=== PATIENT | male | born 1975 | race Caucasian/White ===

== ENCOUNTER 2016-09-28 13:19 | Emergency (ER) | payer SELFPAY ==
[2016-09-28 14:55] LABS: ABSOLUTE EOSINOPHILS # (AUTO) 0.1 10^3/uL (0.0-0.6); ABSOLUTE MONOCYTES (AUTO) 0.5 10^3/uL (0.1-1.4); ABSOLUTE NEUT (AUTO) 4.9 10^3/uL (1.7-8.2); BASOPHILS % (AUTO) 0.6 % (0-2); EOSINOPHILS % (AUTO) 1.6 % (0-6); HEMATOCRIT 48.2 % (37.9-51.0); HEMOGLOBIN 16.4 g/dL (13.5-17.0); LYMPHOCYTES % (AUTO) 26.4 % (13-45); MEAN CORPUSCULAR HEMOGLOBIN 32.4 pg (27.0-33.4); MEAN CORPUSCULAR VOLUME 96 fl (80-97); MONOCYTES % (AUTO) 6.9 % (3-13); RED BLOOD COUNT 5.04 10^6/uL (4.35-5.55); RED CELL DISTRIBUTION WIDTH 12.9 % (11.5-14.0); SEGMENTED NEUTROPHILS % (AUTO) 64.5 % (42-78); WHITE BLOOD COUNT 7.6 10^3/uL (4.0-10.5)
[2016-09-28 14:58] LABS: ALANINE AMINOTRANSFERASE 62 U/L (21-72); ALBUMIN 4.1 g/dL (3.5-5.0); ALKALINE PHOSPHATASE 99 U/L (38-126); ANION GAP 12 (5-19); ASPARTATE AMINO TRANSFERASE 40 U/L (17-59); BILIRUBIN,DIRECT 0.4 mg/dL (0.0-0.4); BILIRUBIN,TOTAL 1.2 mg/dL (0.2-1.3); BLOOD UREA NITROGEN 12 mg/dL (7-20); CALCIUM 9.1 mg/dL (8.4-10.2); CARBON DIOXIDE 25 mmol/L (22-30); CHLORIDE 103 mmol/L (98-107); CREATININE RESULT 0.88 mg/dL (0.52-1.25); GLUCOSE 126 mg/dL (75-110); POTASSIUM 3.8 mmol/L (3.6-5.0); SODIUM 139.9 mmol/L (137-145); TOTAL PROTEIN 7.7 g/dL (6.3-8.2)
[2016-09-28] MEDS ORDERED: ONDANSETRON HCL INJ/PF 4 MG/2 ML SDV IV ONE (15:32)
[2016-09-28] MEDS ORDERED: DIPHENHYDRAMINE HCL 50 MG/ML VIAL IV ONE (15:32)
[2016-09-28] MEDS ORDERED: PROCHLORPERAZINE EDISYLATE INJ 10 MG/2 ML VIAL IV ONE (15:32)
[2016-09-28] MEDS ORDERED: NORMAL SALINE 1000 ML 1,000 ML IV ONE (16:24)
[2016-09-28] MEDS ORDERED: KETOROLAC TROMETHAMINE INJ/PF 30 MG/1 ML SDV IV ONE (16:27)
--- NOTE | 2016-09-28 16:37 | ER Document Report ---
ED Headache - General Mode of Arrival: Ambulatory Information source: Patient TRAVEL OUTSIDE OF THE [place] IN LAST 30 DAYS: No - HPI Similar symptoms previously: No Recently seen / treated by doctor: No <EULALIO COLEMAN - Last Filed: 09/28/16 16:56> <BLANCHEMIGUEL ANN - Last Filed: 09/29/16 01:04> - General Chief Complaint: Headache <24 hrs old Stated Complaint: HEADACHE Time Seen by Provider: 09/28/16 14:29 Notes: Patient is a 40 year old male presenting to the emergency department for headache and neck pain. Patient states that he woke up with the headache this morning. Patient's pain is radiating behind his eyes to the top of his head and down into his neck. Patient denies any history of headaches or any recent medication changes. Patient has a history of hypertension but only takes his medication when he feels like he needs it and he hasn't taken any for 2 months. Patient spent most of the day yesterday working outside in the heat on his camper. Patient has photophobia and also states he had some vomiting, sweats, and lightheadedness earlier today. (EULALIO COLEMAN) - Related Data Allergies/Adverse Reactions: No Known Allergies Allergy (Verified 09/28/16 13:27) Past Medical History - General Information source: Patient - Social History Smoking Status: Current Every Day Smoker Chew tobacco use (# tins/day): No Frequency of alcohol use: None Drug Abuse: Marijuana Family History: None - Past Medical History Cardiac Medical History: Reports: Hx Hypertension Renal/ Medical History: Reports: Hx Kidney Stones Past Surgical History: Reports: Hx Orthopedic Surgery - Immunizations Immunizations up to date: Yes Hx Diphtheria, Pertussis, Tetanus Vaccination: No <EULALIO COLEMAN - Last Filed: 09/28/16 16:56> Review of Systems - Review of Systems Constitutional: No symptoms reported EENT: No symptoms reported Cardiovascular: No symptoms reported Respiratory: No symptoms reported Gastrointestinal: See HPI Genitourinary: No symptoms reported Male Genitourinary: No symptoms reported Musculoskeletal: See HPI Skin: No symptoms reported Hematologic/Lymphatic: No symptoms reported Neurological/Psychological: See HPI, Headaches -: Yes All other systems reviewed and negative <EULALIO COLEMAN - Last Filed: 09/28/16 16:56> Physical Exam - Vital signs Interpretation: Normal, Hypertensive - General General appearance: Appears well, Alert In distress: Mild - HEENT Head: Normocephalic, Atraumatic Eyes: Normal Pupils: PERRL Mucous membranes: Dry - Respiratory Respiratory status: No respiratory distress Chest status: Nontender Breath sounds: Normal Chest palpation: Normal - Cardiovascular Rhythm: Regular Heart sounds: Normal auscultation Murmur: No - Abdominal Inspection: Obese Distension: No distension Bowel sounds: Normal Tenderness: Nontender Organomegaly: No organomegaly - Back Back: Normal, Nontender - Extremities General upper extremity: Normal inspection, Normal ROM, Normal strength General lower extremity: Normal inspection, Normal ROM, Normal strength - Neurological Neuro grossly intact: Yes Cognition: Normal Orientation: AAOx4 [place] Coma Scale Eye Opening: Spontaneous Jake Coma Scale Verbal: Oriented [place] Coma Scale Motor: Obeys Commands [place] Coma Scale Total: 15 Speech: Normal - Psychological Associated symptoms: Normal affect, Normal mood - Skin Skin Temperature: Warm Skin Moisture: Dry <EULALIO COLEMAN - Last Filed: 09/28/16 16:56> <MIGUEL MANCIA - Last Filed: 09/29/16 01:04> - Vital signs Vitals: Temp Pulse Resp BP Pulse Ox 98 F 56 L 16 168/100 H 97 09/28/16 13:30 09/28/16 13:30 09/28/16 13:30 09/28/16 13:30 09/28/16 13:30 Course - Laboratory Result Diagrams: 09/28/16 13:30 09/28/16 13:30 <EULALIO COLEMAN - Last Filed: 09/28/16 16:56> - Laboratory Result Diagrams: 09/28/16 13:30 09/28/16 13:30 <MIGUEL MANCIA - Last Filed: 09/29/16 01:04> - Re-evaluation Re-evalutation: 09/28/16 17:36 Patient is a 40-year-old male who comes in complaining of a headache. Patient also has some posterior neck pain. Patient was given Zofran, Benadryl, Compazine. He is feeling much better. Patient was able to urinate. He is taking p.o. He no longer has a headache. He will be discharged home is to follow-up with his doctor. Stable for discharge. 09/29/16 01:04 I personally performed the services described in the documentation, reviewed and edited the documentation which was dictated to the scribe in my presence, and it accurately records my words and actions. (MIGUEL MANCIA) - Vital Signs Vital signs: Temp Pulse Resp BP Pulse Ox 98 F 56 L 22 H 152/106 H 98 09/28/16 13:30 09/28/16 13:30 09/28/16 16:01 09/28/16 17:43 09/28/16 17:43 - Laboratory Laboratory results interpreted by me: 09/28/16 13:30 Glucose 126 H Discharge <EULALIO COLEMAN - Last Filed: 09/28/16 16:56> <MIGUEL MANCIA - Last Filed: 09/29/16 01:04> - Discharge Clinical Impression: Trapezius muscle spasm Headache Qualifiers: Headache type: tension-type Headache chronicity pattern: acute headache Intractability: not intractable Qualified Code(s): G44.209 - Tension-type headache, unspecified, not intractable Heat stress Qualifiers: Encounter type: initial encounter Qualified Code(s): T67.8XXA - Other effects of heat and light, initial encounter Condition: Stable Disposition: HOME, SELF-CARE Instructions: Headache ([facility]), Muscle Strain ([facility]) Additional Instructions: Please take Zofran if you needed for headache when you get home. Please drink non-caffeinated beverages to stay hydrated. Please be careful when you are out in hot weather. Prescriptions: Cyclobenzaprine HCl [Flexeril 10 Mg Tablet] 10 mg PO TID #20 tablet Forms: Return to Work Scribe Documentation - Scribe Written by Laurence:: Laurence Spear 09/28/16 17:20 acting as scribe for :: Blanche <EULALIO COLEMAN - Last Filed: 09/28/16 16:56>
[2016-09-28] MEDS ORDERED: ONDANSETRON ODT 4 MG TAB (6 TAB/DSPK) PO PRN (17:31)
[2016-09-28 17:51] VITALS: BP 152/106
== END 2016-09-28 17:40 | disposition home or self-care (01) ==
LOC: ER 13:19
DX: T67.8XXA Other effects of heat and light, initial encounter (principal); X30.XXXA Exposure to excessive natural heat, initial encounter; Y93.89 Activity, other specified; G44.209 Tension-type headache, unspecified, not intractable; M62.830 Muscle spasm of back; M54.2 Cervicalgia; H53.149 Visual discomfort, unspecified; R11.10 Vomiting, unspecified; R42 Dizziness and giddiness; R61 Generalized hyperhidrosis; I10 Essential (primary) hypertension; F17.200 Nicotine dependence, unspecified, uncomplicated
CPT/HCPCS: 99284; 96374; 96375; 36415; 84443; 85025; 80053; 84484; J1200; J1885; J0780; J2405; J7030

== ENCOUNTER 2019-06-06 19:34 | Emergency (ER) | payer SELFPAY ==
--- NOTE | 2019-06-06 19:59 | ER Document Report ---
ED Medical Screen (RME) - General Chief Complaint: Blood Pressure Problem Stated Complaint: FALL/BLLOD PRESSURE HIGH/RIGHT SIDE/BACK PAIN/ Time Seen by Provider: 06/06/19 19:47 Notes: Patient is a 43-year-old male with a history of hypertension who presents emergency department with a chief complaint of headache. Patient reports waking up with a mild headache this morning that has gradually gotten worse. Patient reports it became more severe around 1 PM. Patient reports he did start to vomit and unable to keep liquids down since 5 PM. Patient reports right facial cramping and left arm numbness. Patient reports that he is not taking blood thinners. Patient reports he is prescribed lisinopril 20 mg daily. Patient reports as his blood pressure started to go up at home he took another 20 mg around 4 PM. Patient reports that he has not felt quite right since Thursday. Patient reports while in the shower on Thursday he fell onto his right side. Patient complains of right rib pain and right hip pain. Patient reports large amount of bruising to the right hip and right upper leg pain. Patient states he did not hit his head or have a loss of consciousness during this fall. TRAVEL OUTSIDE OF THE [place] IN LAST 30 DAYS: No - Related Data Allergies/Adverse Reactions: No Known Allergies Allergy (Verified 09/28/16 13:27) Home Medications: lisinopril Past Medical History - Social History Chew tobacco use (# tins/day): No Frequency of alcohol use: None Drug Abuse: None - Past Medical History Cardiac Medical History: Reports: Hx Hypertension Renal/ Medical History: Reports: Hx Kidney Stones Past Surgical History: Reports: Hx Orthopedic Surgery - Immunizations Immunizations up to date: Yes Hx Diphtheria, Pertussis, Tetanus Vaccination: No Physical Exam - Vital signs Vitals: Temp Pulse Resp BP Pulse Ox 98.4 F 83 18 226/131 H 97 06/06/19 19:42 06/06/19 19:42 06/06/19 19:42 06/06/19 19:42 06/06/19 19:42 - HEENT Head: Normocephalic Eyes: Normal Conjunctiva: Normal Cornea: Normal Pupils: PERRL Course - Re-evaluation Re-evalutation: 06/06/19 19:57 Patient noted to be significantly hypertensive in triage. Patient is symptomatic with this. Will obtain basic labs, EKG and a CT of the head to rule out intracranial abnormality. Patient appears to be in hypertensive emergency as he is symptomatic. Patient ASA level upgraded to a 2. I have greeted and performed a rapid initial assessment of this patient. A comprehensive ED assessment and evaluation of the patient, analysis of test results and completion of the medical decision making process will be conducted by additional ED providers. - Vital Signs Vital signs: Temp Pulse Resp BP Pulse Ox 98.4 F 83 18 226/131 H 97 06/06/19 19:42 06/06/19 19:42 06/06/19 19:42 06/06/19 19:42 06/06/19 19:42
--- NOTE | 2019-06-06 21:09 | RADIOLOGY REPORT (SQ) ---
EXAM DESCRIPTION: Single view of the chest and four views of the right ribs CLINICAL HISTORY: 43 years Male, Fall, right rib pain COMPARISON: None FINDINGS: Lungs are clear. Heart size is normal. No pneumonia or edema. No pneumothorax or pleural effusion. There is postsurgical change in the lower cervical spine. Views of the right ribs were obtained. No displaced rib fractures are identified. Fracture of the cartilaginous portion of the ribs would not be seen on this exam. IMPRESSION: No acute process. No displaced rib fractures.
--- NOTE | 2019-06-06 21:10 | RADIOLOGY REPORT (SQ) ---
EXAM DESCRIPTION: CT HEAD WITHOUT IV CONTRAST COMPLETED DATE/TME: 06/06/2019 19:54 CLINICAL HISTORY: 43 years, Male, Severe headache, elevated blood pressure COMPARISON: None. TECHNIQUE: Images stored on PACS. All CT scanners at this facility use dose modulation, iterative reconstruction, and/or weight based dosing when appropriate to reduce radiation dose to as low as reasonably achievable (ALARA). [facility]: Dose Right [facility]: CareDose [facility]: Dose Right [facility]: Teradose 4D [facility]: [employer] EXAM DESCRIPTION: CLINICAL HISTORY: Severe headache, elevated blood pressure COMPARISON: None Available TECHNIQUE: Contiguous axial CT images of the head were obtained. Coronal and sagittal reconstructions were created from the axial data. This exam was performed according to our departmental dose-optimization program, which includes automated exposure control, adjustment of the mA and/or kV according to patient size and/or use of iterative reconstruction technique. FINDINGS: There are probable lacunes involving each dobson radiata. There is no definite evidence of acute mass, mass effect, midline shift or hemorrhage. The ventricles and extra-axial CSF spaces are unremarkable. The brain parenchyma appears otherwise normal for the patient's age. No acute abnormalities of the bones is seen. IMPRESSION: No acute intracranial abnormality. If there is persistent clinical concern MRI may be helpful.
--- NOTE | 2019-06-06 21:20 | RADIOLOGY REPORT (SQ) ---
EXAM DESCRIPTION: XR FEMUR 2 VIEWS COMPLETED DATE/TME: 06/06/2019 19:55 CLINICAL HISTORY: 43 years, Male, Fall, right rib pain COMPARISON: None. NUMBER OF VIEWS: 4 TECHNIQUE: Right LIMITATIONS: None. FINDINGS: No acute displaced fracture. Alignment is anatomic. 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 Surrounding soft tissues are unremarkable IMPRESSION: No acute bony injury is seen to the femur copyright 2011 [employer]- All Rights Reserved
--- NOTE | 2019-06-06 21:21 | RADIOLOGY REPORT (SQ) ---
EXAM DESCRIPTION: XR PELVIS 1-2 VIEWS COMPLETED DATE/TME: 06/06/2019 19:55 CLINICAL HISTORY: 43 years, Male, Fall, right hip pain COMPARISON: None. NUMBER OF VIEWS: 3 TECHNIQUE: LIMITATIONS: None. FINDINGS: No acute displaced fracture the pelvis. Alignment is anatomic. 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 Surrounding soft tissues are unremarkable IMPRESSION: No acute bony injury to the lumbar spine copyright 2010 [employer]- All Rights Reserved
[2019-06-06 21:26] LABS: ABSOLUTE BASOPHILS # (AUTO) 0.1 10^3/uL (0.0-0.2); ABSOLUTE EOSINOPHILS # (AUTO) 0.1 10^3/uL (0.0-0.6); ABSOLUTE LYMPHOCYTES (AUTO) 1.6 10^3/uL (0.5-4.7); ABSOLUTE MONOCYTES (AUTO) 0.6 10^3/uL (0.1-1.4); ABSOLUTE NEUT (AUTO) 8.6 10^3/uL (1.7-8.2); BASOPHILS % (AUTO) 0.5 % (0-2); EOSINOPHILS % (AUTO) 0.5 % (0-6); HEMATOCRIT 46.6 % (37.9-51.0); HEMOGLOBIN 16.5 g/dL (13.5-17.0); LYMPHOCYTES % (AUTO) 14.8 % (13-45); MEAN CORPUSCULAR HGB CONC 35.3 g/dL (32.0-36.0); MEAN CORPUSCULAR VOLUME 94 fl (80-97); MONOCYTES % (AUTO) 5.4 % (3-13); PLATELET COUNT 216 10^3/uL (150-450); RED BLOOD COUNT 4.98 10^6/uL (4.35-5.55); RED CELL DISTRIBUTION WIDTH 12.5 % (11.5-14.0); SEGMENTED NEUTROPHILS % (AUTO) 78.8 % (42-78); TOTAL CELLS COUNTED % (AUTO) 100 %; WHITE BLOOD COUNT 10.9 10^3/uL (4.0-10.5)
[2019-06-06] MEDS ORDERED: LABETALOL HCL INJ 20 MG/4 ML DISP.SYRIN IV ONE (21:33)
[2019-06-06] MEDS ORDERED: DIPHENHYDRAMINE HCL 50 MG/ML VIAL IV ONE (21:33)
[2019-06-06] MEDS ORDERED: KETOROLAC TROMETHAMINE INJ/PF 30 MG/1 ML SDV IV ONE (21:33)
[2019-06-06] MEDS ORDERED: PROCHLORPERAZINE EDISYLATE INJ 10 MG/2 ML VIAL IV ONE (21:33)
[2019-06-06 21:37] LABS: ALBUMIN 4.2 g/dL (3.5-5.0); ALKALINE PHOSPHATASE 103 U/L (38-126); ANION GAP 8 (5-19); ASPARTATE AMINO TRANSFERASE 41 U/L (17-59); BILIRUBIN,DIRECT 0.1 mg/dL (0.0-0.4); BILIRUBIN,TOTAL 0.8 mg/dL (0.2-1.3); BLOOD UREA NITROGEN 12 mg/dL (7-20); CALCIUM 8.8 mg/dL (8.4-10.2); CARBON DIOXIDE 31 mmol/L (22-30); CHLORIDE 95 mmol/L (98-107); GLUCOSE 169 mg/dL (75-110); POTASSIUM 3.5 mmol/L (3.6-5.0); TOTAL PROTEIN 7.5 g/dL (6.3-8.2)
--- NOTE | 2019-06-06 21:39 | ER Document Report ---
ED General - General Chief Complaint: Blood Pressure Problem Stated Complaint: FALL/BLLOD PRESSURE HIGH/RIGHT SIDE/BACK PAIN/ Time Seen by Provider: 06/06/19 19:47 Notes: 43-year-old male presents emergency department with 2 separate complaints. Initial complaint is that he fell in the shower on Thursday and has been having increasing pain in his right ribs, right mid abdomen and right hip since he fell in the shower on Thursday and landed on his right-hand side. Denies any weakness associated with this fall. Patient also complains that when he woke up this morning he had a headache that is typical of his usual hypertensive headache. States that he took his blood pressure medications, at lunch his headache worsened so he took another lisinopril as well as ibuprofen but his headache continued to get progressively worse. States that around 4:30 PM he started vomiting, sweating profusely and developing some numbness of his left arm which then extended into his left foot with cramping and numbness as well. Denies any chest pain. States these are identical symptoms to prior headaches he has had when his blood pressure has been elevated markedly 5 times in the past 2 years. Admits that it is associated with photophobia. Denies any history of stroke or heart attack. TRAVEL OUTSIDE OF THE [place] IN LAST 30 DAYS: No - Related Data Allergies/Adverse Reactions: No Known Allergies Allergy (Verified 09/28/16 13:27) Home Medications: lisinopril Past Medical History - General Information source: Patient - Social History Smoking Status: Current Every Day Smoker Chew tobacco use (# tins/day): No Frequency of alcohol use: None - Quit drinking Drug Abuse: Cocaine - Prior cocaine use, states he has not used it in many years., Marijuana Family History: None Patient has suicidal ideation: No Patient has homicidal ideation: No - Past Medical History Cardiac Medical History: Reports: Hx Hypertension Renal/ Medical History: Reports: Hx Kidney Stones Past Surgical History: Reports: Hx Orthopedic Surgery - Immunizations Immunizations up to date: Yes Hx Diphtheria, Pertussis, Tetanus Vaccination: No Review of Systems - Review of Systems Constitutional: See HPI, Diaphoresis, Weakness EENT: See HPI - Photophobia. Cardiovascular: See HPI - No anterior chest pain, does have right lower rib cage pain.. denies: Chest pain, Orthopnea, Dyspnea Respiratory: No symptoms reported Gastrointestinal: See HPI, Abdominal pain, Vomiting Genitourinary: Other - States he has difficulty urinating.. denies: Burning, Dysuria, Discharge Musculoskeletal: See HPI, Back pain - Low back pain, right hip pain, rib pain. Skin: No symptoms reported Neurological/Psychological: See HPI -: Yes All other systems reviewed and negative Physical Exam - Vital signs Vitals: Temp Pulse Resp BP Pulse Ox 98.4 F 83 18 226/131 H 97 06/06/19 19:42 06/06/19 19:42 06/06/19 19:42 06/06/19 19:42 06/06/19 19:42 Interpretation: Hypertensive - Notes Notes: GENERAL: Alert, interacts well. Appears uncomfortable, lying flat in the bed, looking away from the light. HEAD: Normocephalic, atraumatic EYES: Pupils equal, round and reactive to light, extraocular movements intact. ENT: Oral mucosa moist, tongue midline. NECK: Full range of motion, supple, trachea midline. LUNGS: Clear to auscultation bilaterally, no wheezes, rales or rhonchi, no respiratory distress. HEART: Regular rate and rhythm, no murmurs, gallops, rubs. ABDOMEN: Soft, right lower rib pain in the midaxillary and anterior axillary line, no bruising noted to the rib cage, right upper quadrant tenderness to palpation, bruising noted to the right side in the posterior axillary line and along the top of the iliac crest. Abdomen is nondistended, bowel sounds present in all 4 quadrants. EXTREMITIES: Moves all 4 extremities spontaneously, no edema, radial and dorsalis pedis pulses 2/4 bilaterally. No cyanosis. NEUROLOGICAL: Alert and oriented x3, normal speech, cranial nerves II through XII grossly intact, biceps and patellar DTRs 2+ bilaterally. Very slight weakness with great toe raising strength on the left, no other weakness with range of motion on the left leg, very slight weakness in fingers 4 and 5 on the left, no weakness in fingers 1 through 3 or the rest of the left upper extremity. Sensation is intact. PSYCH: Normal mood, normal affect. SKIN: Warm, Dry, normal turgor, bruising as described above, also moderate area of erythema around an area of scabbing without any fluctuance to the lateral right low back. Course - Re-evaluation Re-evalutation: 06/06/19 21:[address] 06/06/19 19:54 IMPRESSION: No acute intracranial abnormality. If there is persistent clinical concern MRI may be helpful. Femur X-Ray 06/06/19 19:55 IMPRESSION: No acute bony injury is seen to the femur copyright 2010 [employer]- All Rights Reserved Pelvis X-Ray 06/06/19 19:55 IMPRESSION: No acute bony injury to the lumbar spine copyright 2010 [employer]- All Rights Reserved Ribs w/Chest X-Ray 06/06/19 19:55 IMPRESSION: No acute process. No displaced rib fractures. No bleeding on the CT scan of the head, no fractures noted. I am concerned by the bruising on the patient's right-hand side as well as the tenderness over top of his liver, CAT scan will be ordered to look for liver laceration. Blood pressure will be treated with labetalol, headache will be treated with Toradol, Compazine and Benadryl in addition to labetalol to lower his blood pressure. This does appear to be hypertensive emergency as he is symptomatic with his elevated blood pressure. No current evidence of stroke. 06/07/19 01:07 Patient has been rechecked, his headache is almost completely resolved, states he no longer has any numbness or tingling to the left hand side, no longer feels weak on the left, is able to move all 4 extremities without any difficulty. Blood pressure with 20 of labetalol is now 150/97. Troponin has been flat at 0.050 initially and then 0.051 three hours later, this is not a significant change. EKG is nonischemic. Patient feels much better, is agreeable to being discharged to home with a prescription for metoprolol 25 mg twice a day. When he was previously seen at this hospital several years ago for hypertensive emergency patient was discharged home on the metoprolol and does not recall why he stopped using it. Currently is only using amlodipine and lisinopril. Patient will follow-up with primary care physician as an outpatient. - Vital Signs Vital signs: Temp Pulse Resp BP Pulse Ox 98.4 F 83 18 226/131 H 97 06/06/19 19:42 06/06/19 19:42 06/06/19 19:42 06/06/19 19:42 06/06/19 19:42 - Laboratory Result Diagrams: 06/06/19 20:53 06/06/19 20:53 Laboratory results interpreted by me: 06/06/19 06/06/19 06/06/19 20:53 20:53 23:15 WBC 10.9 H Absolute Neuts (auto) 8.6 H Seg Neutrophils % 78.8 H Sodium 134.0 L Potassium 3.5 L Chloride 95 L Carbon Dioxide 31 H Glucose 169 H Urine Protein >=500 H Urine Glucose (UA) 50 H Urine Urobilinogen 2.0 H - EKG Interpretation by Me Additional EKG results interpreted by me: 06/06/19 21:40 EKG shows sinus rhythm at a rate of 74, normal axis, normal intervals, no ST segment elevations or depressions, slight T wave inversions noted in aVL, aVF, V5 and V6 per my interpretation. Critical Care Note - Critical Care Note Total time excluding time spent on procedures (mins): 35 Discharge - Discharge Clinical Impression: Hypertensive emergency without congestive heart failure, Left-sided paresthesias Headache Qualifiers: Headache type: unspecified Headache chronicity pattern: acute headache Intractability: intractable Qualified Code(s): R51 - Headache Condition: Stable Disposition: HOME, SELF-CARE Additional Instructions: Today your blood pressure was fixed with 1 injection of labetalol 20 mg IV. I would like to start you on a similar medication by mouth. This is metoprolol 25 mg twice a day. Please take your blood pressure twice a day and write it down. Please follow-up with your primary care physician within the next 2 weeks to reevaluate your blood pressure medications. They may decide that metoprolol is a medication they would like to continue or they may decide that it is too strong and makes you weak or dizzy. Your weakness and your numb and tingly sensation went away when your blood pressure became under control. There is no evidence of a stroke. We also saw no evidence of a heart attack today. If your symptoms return please return to the emergency department. Prescriptions: Metoprolol Tartrate [Lopressor 25 mg Tablet] 25 mg PO Q12 #60 tab
--- NOTE | 2019-06-06 23:25 | RADIOLOGY REPORT (SQ) ---
EXAM DESCRIPTION: CT ABDOMEN PELVIS WITH IV CONTRAST COMPLETED DATE/TME: 06/06/2019 21:41 CLINICAL HISTORY: 43 years, Male, fall, bruising in right side, TTP over liver COMPARISON: 02/12/2014 CT TECHNIQUE: 900 Images stored on PACS. All CT scanners at this facility use dose modulation, iterative reconstruction, and/or weight based dosing when appropriate to reduce radiation dose to as low as reasonably achievable (ALARA). [facility]: Dose Right [facility]: CareDose [facility]: Dose Right [facility]: Teradose 4D [facility]: [employer] LIMITATIONS: None. FINDINGS: Limited evaluation of the lung bases is unremarkable. Osseous structures are grossly intact. Fatty infiltrative change to the liver. Subjective wall thickening of the distal esophagus. The spleen, adrenal glands, pancreas, kidneys are unremarkable. The gallbladder is present. Normal appendix. No gross evidence for bowel obstruction. Large amount of stool in the colon. Sigmoid diverticulosis. No CT evidence for diverticulitis. No free air or free fluid. IMPRESSION: Sigmoid diverticulosis. No CT evidence for diverticulitis. Fatty infiltrative change to the liver. TECHNICAL DOCUMENTATION: Quality ID # [id number]: Final reports with documentation of one or more dose reduction techniques (e.g., Automated exposure control, adjustment of the mA and/or kV according to patient size, use of iterative reconstruction technique) copyright 2011 [employer]- All Rights Reserved
[2019-06-06 23:49] LABS: APPEARANCE,URINE SLIGHTLY-CLOUDY; BILIRUBIN,URINE NEGATIVE (NEGATIVE); COLOR,URINE YELLOW; GLUCOSE, URINE 50 mg/dL (NEGATIVE); KETONES,URINE NEGATIVE (NEGATIVE); LEUKOCYTE ESTERASE,URINE NEGATIVE (NEGATIVE); NITRITE,URINE NEGATIVE (NEGATIVE); PROTEIN,URINE >=500 mg/dL (NEGATIVE); URINE SPECIFIC GRAVITY 1.032
[2019-06-07 01:58] VITALS: BP 140/82
--- NOTE | 2019-06-07 11:32 | EKG REPORT ---
SEVERITY:- BORDERLINE ECG - SINUS RHYTHM PROBABLE LEFT ATRIAL ABNORMALITY BORDERLINE T ABNORMALITIES, ANT-LAT LEADS : Confirmed by: Marquez Pemberton 07-Jun-2019 11:31:37
== END 2019-06-07 01:59 | disposition home or self-care (01) ==
LOC: ER 19:34
DX: I16.0 Hypertensive urgency (principal); R20.2 Paresthesia of skin; R51 Headache; R07.81 Pleurodynia; M25.551 Pain in right hip; W18.2XXD Fall in (into) shower or empty bathtub, subsequent encounter; F17.200 Nicotine dependence, unspecified, uncomplicated; I10 Essential (primary) hypertension
CPT/HCPCS: 93005; 36415; 85025; 80053; 81001; 84484; 73552; 72170; 71101; 70450; 74177; 93010; J1200; J3490; J1885; J0780; 96374; 96375; 99285